=== PATIENT | male | born 1950 | race African-American/Black ===

== ENCOUNTER 2018-09-22 08:06 | Day surgery (SDC) | payer MEDICARE ==
[2018-09-22] MEDS ORDERED: LOPRESSOR PO NR (09:00)
[2018-09-22 09:07] LABS: BUN/Creatinine Ratio 23; Blood Urea Nitrogen 16 mg/dL (9-20); Calcium 8.9 mg/dL (8.4-10.2); Hemolysis Index 0
[2018-09-22] MEDS ORDERED: LOPRESSOR PO ONE (10:30)
[2018-09-22] MEDS ORDERED: LOPRESSOR IV ONE ×2 (11:00→12:00)
[2018-09-22] MEDS ORDERED: NITROSTAT SL ONE (11:15)
[2018-09-22 12:28] VITALS: BP 109/74
== END 2018-09-22 12:56 | disposition home or self-care (01) ==
LOC: CATHLABREC 08:06
PROVIDERS: ATTEND Internal Medicine Cardiovascular Disease
DX: R07.9 Chest pain, unspecified (principal); E78.00 Pure hypercholesterolemia, unspecified; I10 Essential (primary) hypertension; I20.8 Other forms of angina pectoris; Z53.8 Procedure and treatment not carried out for other reasons; Z79.899 Other long term (current) drug therapy; Z79.84 Long term (current) use of oral hypoglycemic drugs; Z79.4 Long term (current) use of insulin
CPT/HCPCS: 36415; 80048

== ENCOUNTER 2019-06-02 09:52 | Outpatient (CLI) | payer MEDICARE ==
[2019-06-02] MEDS ORDERED: LIDOCAINE (4%) 40 MG/ML TOPICAL SOLN 50 ML BOTTLE TP ONE (10:17)
== END 2019-06-02 09:53 | disposition home or self-care (01) ==
LOC: WOUND 09:52
PROVIDERS: ATTEND Surgery
DX: E11.622 Type 2 diabetes mellitus with other skin ulcer (principal); L97.322 Non-pressure chronic ulcer of left ankle with fat layer exposed; L97.222 Non-pressure chronic ulcer of left calf with fat layer exposed; E11.621 Type 2 diabetes mellitus with foot ulcer; L97.512 Non-pressure chronic ulcer of other part of right foot with fat layer exposed; I10 Essential (primary) hypertension
CPT/HCPCS: 11042; 11045; G0463; 99215

== ENCOUNTER 2019-06-09 10:11 | Outpatient (CLI) | payer MEDICARE ==
[2019-06-09] MEDS ORDERED: LIDOCAINE (4%) 40 MG/ML TOPICAL SOLN 50 ML BOTTLE TP ONE (11:00)
== END 2019-06-09 10:12 | disposition home or self-care (01) ==
LOC: WOUND 10:11
PROVIDERS: ATTEND Surgery
DX: E11.622 Type 2 diabetes mellitus with other skin ulcer (principal); L97.322 Non-pressure chronic ulcer of left ankle with fat layer exposed; L97.222 Non-pressure chronic ulcer of left calf with fat layer exposed; E11.621 Type 2 diabetes mellitus with foot ulcer; L97.512 Non-pressure chronic ulcer of other part of right foot with fat layer exposed; I10 Essential (primary) hypertension
CPT/HCPCS: 36415; 71046; 80048; 83036; 85025

== ENCOUNTER 2019-06-23 10:12 | Outpatient (CLI) | payer MEDICARE ==
[2019-06-23] MEDS ORDERED: LIDOCAINE (4%) 40 MG/ML TOPICAL SOLN 50 ML BOTTLE TP ONE (10:58)
== END 2019-06-23 10:13 | disposition home or self-care (01) ==
LOC: WOUND 10:12
PROVIDERS: ATTEND Surgery
DX: E11.622 Type 2 diabetes mellitus with other skin ulcer (principal); L97.322 Non-pressure chronic ulcer of left ankle with fat layer exposed; L97.222 Non-pressure chronic ulcer of left calf with fat layer exposed; E11.621 Type 2 diabetes mellitus with foot ulcer; L97.512 Non-pressure chronic ulcer of other part of right foot with fat layer exposed; I10 Essential (primary) hypertension
CPT/HCPCS: 36415; 80048; 83036; 85025; 93925

== ENCOUNTER 2019-06-23 11:55 | Outpatient (CLI) | payer MEDICARE ==
[2019-06-23 12:30] LABS: Basophils # (Auto) 0.1 K/mm3 (0.0-0.1); Basophils % (Auto) 1.2 % (0.0-1.8); Eosinophils # (Auto) 0.2 K/mm3 (0.0-0.4); Eosinophils % (Auto) 3.3 % (0.0-4.3); Hematocrit 40.6 % (35.5-45.6); Hemoglobin 13.3 gm/dl (11.8-15.2); Lymphocytes # (Auto) 1.2 K/mm3 (1.2-5.4); Lymphocytes % (Auto) 25.5 % (13.4-35.0); Mean Corpuscular HGB Conc 33 % (32-34); Mean Corpuscular Volume 85 fl (84-94); Monocytes # (Auto) 0.3 K/mm3 (0.0-0.8); Monocytes % (Auto) 6.4 % (0.0-7.3); Platelet Count 304 K/mm3 (140-440); Red Cell Distribution Width 13.7 % (13.2-15.2)
[2019-06-23 12:50] LABS: BUN/Creatinine Ratio 28; Blood Urea Nitrogen 22 mg/dL (9-20); Calcium 9.7 mg/dL (8.4-10.2); Hemolysis Index 6
--- NOTE | 2019-06-23 15:35 | Vascular Lab Report ---
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 TECHNIQUE: Arterial duplex examination of both lower extremities performed using B-mode, color flow and spectral Doppler assessment. FINDINGS: RIGHT: Common Femoral Artery: PSV 88 cm/sec. Triphasic waveform. Proximal SFA: PSV 87 cm/sec. Biphasic waveform. Mid SFA: PSV 69 cm/sec. Triphasic waveform. Distal SFA: PSV 43 cm/sec. Triphasic waveform. Popliteal artery: PSV 53 cm/sec. Triphasic waveform. Posterior tibial artery: PSV 134 cm/sec. Triphasic waveform. Dorsalis Pedis Artery: PSV 25 cm/sec. Monophasic waveform. LEFT: Common Femoral Artery: PSV 90 cm/sec. Triphasic waveform. Proximal SFA: PSV 92 cm/sec. Triphasic waveform. Mid SFA: PSV 88 cm/sec. Triphasic waveform. Distal SFA: PSV 56 cm/sec. Triphasic waveform. Popliteal artery: PSV 47 cm/sec. Triphasic waveform. Posterior tibial artery: PSV 95 cm/sec. Triphasic waveform. Dorsalis Pedis Artery: PSV 18 cm/sec. Biphasic waveform. IMPRESSION: 1. Multifocal atherosclerotic disease with waveforms as outlined above. Most significant stenosis is seen in the region of the right DPA where the waveform transition from triphasic to monophasic. Ankle-Brachial Index (CARMINA): * Calcified arteries > 1.4 * Normal = 0.9-1.4 * Mild PAD = 0.7-0.89 * Moderate PAD = 0.51-0.69 * Severe PAD < 0.5 Doppler Waveform: * Triphasic is normal. * Biphasic is abnormal if clear transition from triphasic signal along vascular tree. * Monophasic is abnormal. Signer Name: Efrain Lubin MD Signed: 06/23/2019 3:31 PM Workstation Name: [email or web address]
== END 2019-06-23 11:56 | disposition home or self-care (01) ==
LOC: VAS 11:55
PROVIDERS: ATTEND Surgery
DX: I70.299 Other atherosclerosis of native arteries of extremities, unspecified extremity (principal); L97.322 Non-pressure chronic ulcer of left ankle with fat layer exposed
CPT/HCPCS: 36415; 80048; 83036; 85025; 93925

== ENCOUNTER 2019-06-30 11:19 | Outpatient (CLI) | payer MEDICARE ==
[2019-06-30] MEDS ORDERED: LIDOCAINE (4%) 40 MG/ML TOPICAL SOLN 50 ML BOTTLE TP ONE (12:22)
== END 2019-06-30 11:20 | disposition home or self-care (01) ==
LOC: WOUND 11:19
PROVIDERS: ATTEND Surgery
DX: E11.622 Type 2 diabetes mellitus with other skin ulcer (principal); L97.322 Non-pressure chronic ulcer of left ankle with fat layer exposed; L97.222 Non-pressure chronic ulcer of left calf with fat layer exposed; E11.621 Type 2 diabetes mellitus with foot ulcer; L97.512 Non-pressure chronic ulcer of other part of right foot with fat layer exposed; I10 Essential (primary) hypertension

== ENCOUNTER 2019-06-30 13:20 | Outpatient (CLI) | payer MEDICARE ==
[2019-06-30 14:03] LABS: BUN/Creatinine Ratio 29; Blood Urea Nitrogen 20 mg/dL (9-20); Calcium 9.5 mg/dL (8.4-10.2); Hemolysis Index 11
== END 2019-06-30 13:21 | disposition home or self-care (01) ==
LOC: LAB 13:20
PROVIDERS: ATTEND Surgery
DX: E11.621 Type 2 diabetes mellitus with foot ulcer (principal); N18.1 Chronic kidney disease, stage 1; L97.222 Non-pressure chronic ulcer of left calf with fat layer exposed; L97.512 Non-pressure chronic ulcer of other part of right foot with fat layer exposed
CPT/HCPCS: 36415; 80048

== ENCOUNTER 2019-07-05 08:00 | Outpatient (CLI) | payer MEDICARE | END 2019-07-05 08:01 | disposition home or self-care (01) | LOC: WOUND 08:00 | PROVIDERS: ATTEND Surgery | DX: E11.621 Type 2 diabetes mellitus with foot ulcer (principal); L97.512 Non-pressure chronic ulcer of other part of right foot with fat layer exposed; E11.622 Type 2 diabetes mellitus with other skin ulcer; L97.222 Non-pressure chronic ulcer of left calf with fat layer exposed; L97.322 Non-pressure chronic ulcer of left ankle with fat layer exposed; E11.22 Type 2 diabetes mellitus with diabetic chronic kidney disease; I12.9 Hypertensive chronic kidney disease with stage 1 through stage 4 chronic kidney disease, or unspecified chronic kidney disease; N18.1 Chronic kidney disease, stage 1 | CPT/HCPCS: 82962; 99183; G0277 ==

== ENCOUNTER 2019-07-06 07:57 | Outpatient (CLI) | payer MEDICARE | END 2019-07-06 07:58 | disposition home or self-care (01) | LOC: WOUND 07:57 | PROVIDERS: ATTEND Surgery | DX: E11.621 Type 2 diabetes mellitus with foot ulcer (principal); L97.512 Non-pressure chronic ulcer of other part of right foot with fat layer exposed; E11.622 Type 2 diabetes mellitus with other skin ulcer; L97.222 Non-pressure chronic ulcer of left calf with fat layer exposed; L97.322 Non-pressure chronic ulcer of left ankle with fat layer exposed; E11.22 Type 2 diabetes mellitus with diabetic chronic kidney disease; I12.9 Hypertensive chronic kidney disease with stage 1 through stage 4 chronic kidney disease, or unspecified chronic kidney disease; N18.1 Chronic kidney disease, stage 1 | CPT/HCPCS: 82962; 99183; G0277 ==

== ENCOUNTER 2019-07-07 08:57 | Outpatient (CLI) | payer MEDICARE ==
[2019-07-07] MEDS ORDERED: LIDOCAINE (4%) 40 MG/ML TOPICAL SOLN 50 ML BOTTLE TP ONE (10:00)
== END 2019-07-07 08:58 | disposition home or self-care (01) ==
LOC: WOUND 08:57
PROVIDERS: ATTEND Surgery
DX: E11.621 Type 2 diabetes mellitus with foot ulcer (principal); L97.512 Non-pressure chronic ulcer of other part of right foot with fat layer exposed; E11.622 Type 2 diabetes mellitus with other skin ulcer; L97.222 Non-pressure chronic ulcer of left calf with fat layer exposed; L97.322 Non-pressure chronic ulcer of left ankle with fat layer exposed; E11.22 Type 2 diabetes mellitus with diabetic chronic kidney disease; I12.9 Hypertensive chronic kidney disease with stage 1 through stage 4 chronic kidney disease, or unspecified chronic kidney disease; N18.1 Chronic kidney disease, stage 1
CPT/HCPCS: 11042; 11045; 82962; G0277; 99183

== ENCOUNTER 2019-07-08 08:09 | Outpatient (CLI) | payer MEDICARE | END 2019-07-08 08:10 | disposition home or self-care (01) | LOC: WOUND 08:09 | PROVIDERS: ATTEND Surgery | DX: E11.9 Type 2 diabetes mellitus without complications (principal); I10 Essential (primary) hypertension | CPT/HCPCS: 82962 ==

== ENCOUNTER 2019-07-11 07:46 | Outpatient (CLI) | payer MEDICARE | END 2019-07-11 07:47 | disposition home or self-care (01) | LOC: WOUND 07:46 | PROVIDERS: ATTEND Surgery | DX: E11.621 Type 2 diabetes mellitus with foot ulcer (principal); L97.512 Non-pressure chronic ulcer of other part of right foot with fat layer exposed; E11.622 Type 2 diabetes mellitus with other skin ulcer; L97.222 Non-pressure chronic ulcer of left calf with fat layer exposed; L97.322 Non-pressure chronic ulcer of left ankle with fat layer exposed; E11.22 Type 2 diabetes mellitus with diabetic chronic kidney disease; I12.9 Hypertensive chronic kidney disease with stage 1 through stage 4 chronic kidney disease, or unspecified chronic kidney disease; N18.1 Chronic kidney disease, stage 1 | CPT/HCPCS: 82962; G0277; 99183 ==

== ENCOUNTER 2019-07-12 07:52 | Outpatient (CLI) | payer MEDICARE | END 2019-07-12 07:53 | disposition home or self-care (01) | LOC: WOUND 07:52 | PROVIDERS: ATTEND Surgery | DX: E11.621 Type 2 diabetes mellitus with foot ulcer (principal); L97.512 Non-pressure chronic ulcer of other part of right foot with fat layer exposed; E11.622 Type 2 diabetes mellitus with other skin ulcer; L97.222 Non-pressure chronic ulcer of left calf with fat layer exposed; L97.322 Non-pressure chronic ulcer of left ankle with fat layer exposed; E11.22 Type 2 diabetes mellitus with diabetic chronic kidney disease; I12.9 Hypertensive chronic kidney disease with stage 1 through stage 4 chronic kidney disease, or unspecified chronic kidney disease; N18.1 Chronic kidney disease, stage 1 | CPT/HCPCS: 82962; G0277; 99183 ==

== ENCOUNTER 2019-07-13 07:51 | Outpatient (CLI) | payer MEDICARE | END 2019-07-13 07:52 | disposition home or self-care (01) | LOC: WOUND 07:51 | PROVIDERS: ATTEND Surgery | DX: E11.621 Type 2 diabetes mellitus with foot ulcer (principal); L97.512 Non-pressure chronic ulcer of other part of right foot with fat layer exposed; E11.622 Type 2 diabetes mellitus with other skin ulcer; L97.222 Non-pressure chronic ulcer of left calf with fat layer exposed; L97.322 Non-pressure chronic ulcer of left ankle with fat layer exposed; E11.22 Type 2 diabetes mellitus with diabetic chronic kidney disease; I12.9 Hypertensive chronic kidney disease with stage 1 through stage 4 chronic kidney disease, or unspecified chronic kidney disease; N18.1 Chronic kidney disease, stage 1 | CPT/HCPCS: 82962; G0277; 99183 ==

== ENCOUNTER 2019-07-14 07:54 | Outpatient (CLI) | payer MEDICARE ==
[2019-07-14] MEDS ORDERED: LIDOCAINE (4%) 40 MG/ML TOPICAL SOLN 50 ML BOTTLE TP ONE (10:55)
[2019-07-14] MEDS ORDERED: VITAMIN A & D OINT 56.7 GM TP SCH (11:00)
== END 2019-07-14 07:55 | disposition home or self-care (01) ==
LOC: WOUND 07:54
PROVIDERS: ATTEND Surgery
DX: E11.621 Type 2 diabetes mellitus with foot ulcer (principal); L97.512 Non-pressure chronic ulcer of other part of right foot with fat layer exposed; E11.622 Type 2 diabetes mellitus with other skin ulcer; L97.222 Non-pressure chronic ulcer of left calf with fat layer exposed; L97.322 Non-pressure chronic ulcer of left ankle with fat layer exposed; E11.22 Type 2 diabetes mellitus with diabetic chronic kidney disease; I12.9 Hypertensive chronic kidney disease with stage 1 through stage 4 chronic kidney disease, or unspecified chronic kidney disease; N18.1 Chronic kidney disease, stage 1
CPT/HCPCS: 11042; 11043; 11045; 82962; G0277; 99183; A6250

== ENCOUNTER 2019-07-15 07:54 | Outpatient (CLI) | payer MEDICARE | END 2019-07-15 07:55 | disposition home or self-care (01) | LOC: WOUND 07:54 | PROVIDERS: ATTEND Surgery | DX: E11.621 Type 2 diabetes mellitus with foot ulcer (principal); L97.512 Non-pressure chronic ulcer of other part of right foot with fat layer exposed; E11.622 Type 2 diabetes mellitus with other skin ulcer; L97.222 Non-pressure chronic ulcer of left calf with fat layer exposed; L97.322 Non-pressure chronic ulcer of left ankle with fat layer exposed; E11.22 Type 2 diabetes mellitus with diabetic chronic kidney disease; I12.9 Hypertensive chronic kidney disease with stage 1 through stage 4 chronic kidney disease, or unspecified chronic kidney disease; N18.1 Chronic kidney disease, stage 1 | CPT/HCPCS: 82962; G0277; 99183 ==

== ENCOUNTER 2019-07-18 08:02 | Outpatient (CLI) | payer MEDICARE | END 2019-07-18 08:03 | disposition home or self-care (01) | LOC: WOUND 08:02 | PROVIDERS: ATTEND Surgery | DX: E11.621 Type 2 diabetes mellitus with foot ulcer (principal); L97.512 Non-pressure chronic ulcer of other part of right foot with fat layer exposed; E11.622 Type 2 diabetes mellitus with other skin ulcer; L97.222 Non-pressure chronic ulcer of left calf with fat layer exposed; L97.322 Non-pressure chronic ulcer of left ankle with fat layer exposed; E11.22 Type 2 diabetes mellitus with diabetic chronic kidney disease; I12.9 Hypertensive chronic kidney disease with stage 1 through stage 4 chronic kidney disease, or unspecified chronic kidney disease; N18.1 Chronic kidney disease, stage 1 | CPT/HCPCS: 82962; G0277; 99183 ==

== ENCOUNTER 2019-07-19 07:51 | Outpatient (CLI) | payer MEDICARE ==
[2019-07-19 14:56] LABS: Blood Urea Nitrogen 23 mg/dL (9-20)
== END 2019-07-19 07:52 | disposition home or self-care (01) ==
LOC: WOUND 07:51
PROVIDERS: ATTEND Surgery
DX: E11.621 Type 2 diabetes mellitus with foot ulcer (principal); L97.512 Non-pressure chronic ulcer of other part of right foot with fat layer exposed; E11.622 Type 2 diabetes mellitus with other skin ulcer; L97.222 Non-pressure chronic ulcer of left calf with fat layer exposed; L97.322 Non-pressure chronic ulcer of left ankle with fat layer exposed; E11.22 Type 2 diabetes mellitus with diabetic chronic kidney disease; I12.9 Hypertensive chronic kidney disease with stage 1 through stage 4 chronic kidney disease, or unspecified chronic kidney disease; N18.1 Chronic kidney disease, stage 1
CPT/HCPCS: 36415; 82565; 82962; 84520; G0277; 99183; A9577

== ENCOUNTER 2019-07-20 07:52 | Outpatient (CLI) | payer MEDICARE | END 2019-07-20 07:53 | disposition home or self-care (01) | LOC: WOUND 07:52 | PROVIDERS: ATTEND Surgery | DX: E11.621 Type 2 diabetes mellitus with foot ulcer (principal); L97.512 Non-pressure chronic ulcer of other part of right foot with fat layer exposed; E11.622 Type 2 diabetes mellitus with other skin ulcer; L97.222 Non-pressure chronic ulcer of left calf with fat layer exposed; L97.322 Non-pressure chronic ulcer of left ankle with fat layer exposed; E11.22 Type 2 diabetes mellitus with diabetic chronic kidney disease; I12.9 Hypertensive chronic kidney disease with stage 1 through stage 4 chronic kidney disease, or unspecified chronic kidney disease; N18.1 Chronic kidney disease, stage 1 | CPT/HCPCS: 82962; G0277; 99183 ==

== ENCOUNTER 2019-07-21 07:56 | Outpatient (CLI) | payer MEDICARE ==
[2019-07-21] MEDS ORDERED: LIDOCAINE (4%) 40 MG/ML TOPICAL SOLN 50 ML BOTTLE TP ONE (11:00)
== END 2019-07-21 07:57 | disposition home or self-care (01) ==
LOC: WOUND 07:56
PROVIDERS: ATTEND Surgery
DX: E11.621 Type 2 diabetes mellitus with foot ulcer (principal); L97.515 Non-pressure chronic ulcer of other part of right foot with muscle involvement without evidence of necrosis; E11.622 Type 2 diabetes mellitus with other skin ulcer; L97.222 Non-pressure chronic ulcer of left calf with fat layer exposed; L97.322 Non-pressure chronic ulcer of left ankle with fat layer exposed; E11.22 Type 2 diabetes mellitus with diabetic chronic kidney disease; I12.9 Hypertensive chronic kidney disease with stage 1 through stage 4 chronic kidney disease, or unspecified chronic kidney disease; N18.1 Chronic kidney disease, stage 1
CPT/HCPCS: 11042; 11043; 82962; G0277; 99183

== ENCOUNTER 2019-07-22 07:53 | Outpatient (CLI) | payer MEDICARE | END 2019-07-22 07:54 | disposition home or self-care (01) | LOC: WOUND 07:53 | PROVIDERS: ATTEND Surgery | DX: E11.621 Type 2 diabetes mellitus with foot ulcer (principal); L97.515 Non-pressure chronic ulcer of other part of right foot with muscle involvement without evidence of necrosis; E11.622 Type 2 diabetes mellitus with other skin ulcer; L97.222 Non-pressure chronic ulcer of left calf with fat layer exposed; L97.322 Non-pressure chronic ulcer of left ankle with fat layer exposed; E11.22 Type 2 diabetes mellitus with diabetic chronic kidney disease; I12.9 Hypertensive chronic kidney disease with stage 1 through stage 4 chronic kidney disease, or unspecified chronic kidney disease; N18.1 Chronic kidney disease, stage 1 | CPT/HCPCS: 82962; 99183; G0277 ==

== ENCOUNTER 2019-07-25 07:52 | Outpatient (CLI) | payer MEDICARE | END 2019-07-25 07:53 | disposition home or self-care (01) | LOC: WOUND 07:52 | PROVIDERS: ATTEND Surgery | DX: E11.621 Type 2 diabetes mellitus with foot ulcer (principal); L97.515 Non-pressure chronic ulcer of other part of right foot with muscle involvement without evidence of necrosis; E11.622 Type 2 diabetes mellitus with other skin ulcer; L97.222 Non-pressure chronic ulcer of left calf with fat layer exposed; L97.322 Non-pressure chronic ulcer of left ankle with fat layer exposed; E11.22 Type 2 diabetes mellitus with diabetic chronic kidney disease; I12.9 Hypertensive chronic kidney disease with stage 1 through stage 4 chronic kidney disease, or unspecified chronic kidney disease; N18.1 Chronic kidney disease, stage 1 | CPT/HCPCS: 82962; 99183; G0277 ==

== ENCOUNTER 2019-07-27 07:54 | Outpatient (CLI) | payer MEDICARE | END 2019-07-27 07:55 | disposition home or self-care (01) | LOC: WOUND 07:54 | PROVIDERS: ATTEND Surgery | DX: E11.621 Type 2 diabetes mellitus with foot ulcer (principal); L97.512 Non-pressure chronic ulcer of other part of right foot with fat layer exposed; E11.622 Type 2 diabetes mellitus with other skin ulcer; L97.222 Non-pressure chronic ulcer of left calf with fat layer exposed; L97.322 Non-pressure chronic ulcer of left ankle with fat layer exposed; E11.22 Type 2 diabetes mellitus with diabetic chronic kidney disease; I12.9 Hypertensive chronic kidney disease with stage 1 through stage 4 chronic kidney disease, or unspecified chronic kidney disease; N18.1 Chronic kidney disease, stage 1 | CPT/HCPCS: 82962; 99183; G0277 ==

== ENCOUNTER 2019-07-28 07:55 | Outpatient (CLI) | payer MEDICARE ==
[2019-07-28] MEDS ORDERED: LIDOCAINE (4%) 40 MG/ML TOPICAL SOLN 50 ML BOTTLE TP ONE (10:23)
== END 2019-07-28 07:56 | disposition home or self-care (01) ==
LOC: WOUND 07:55
PROVIDERS: ATTEND Surgery
DX: E11.621 Type 2 diabetes mellitus with foot ulcer (principal); L97.512 Non-pressure chronic ulcer of other part of right foot with fat layer exposed; E11.622 Type 2 diabetes mellitus with other skin ulcer; L97.222 Non-pressure chronic ulcer of left calf with fat layer exposed; L97.322 Non-pressure chronic ulcer of left ankle with fat layer exposed; E11.22 Type 2 diabetes mellitus with diabetic chronic kidney disease; I12.9 Hypertensive chronic kidney disease with stage 1 through stage 4 chronic kidney disease, or unspecified chronic kidney disease; N18.1 Chronic kidney disease, stage 1
CPT/HCPCS: 11042; 11044; G0277; 82962; 99183

== ENCOUNTER 2019-07-29 10:05 | Outpatient (CLI) | payer MEDICARE | END 2019-07-29 10:06 | disposition home or self-care (01) | LOC: WOUND 10:05 | PROVIDERS: ATTEND Surgery | DX: E11.621 Type 2 diabetes mellitus with foot ulcer (principal); L97.512 Non-pressure chronic ulcer of other part of right foot with fat layer exposed; E11.622 Type 2 diabetes mellitus with other skin ulcer; L97.222 Non-pressure chronic ulcer of left calf with fat layer exposed; L97.322 Non-pressure chronic ulcer of left ankle with fat layer exposed; E11.22 Type 2 diabetes mellitus with diabetic chronic kidney disease; I12.9 Hypertensive chronic kidney disease with stage 1 through stage 4 chronic kidney disease, or unspecified chronic kidney disease; N18.1 Chronic kidney disease, stage 1 | CPT/HCPCS: 82962; G0277; 99183 ==

== ENCOUNTER 2019-08-02 07:55 | Outpatient (CLI) | payer MEDICARE | END 2019-08-02 07:56 | disposition home or self-care (01) | LOC: WOUND 07:55 | PROVIDERS: ATTEND Surgery | DX: E11.621 Type 2 diabetes mellitus with foot ulcer (principal); L97.512 Non-pressure chronic ulcer of other part of right foot with fat layer exposed; E11.622 Type 2 diabetes mellitus with other skin ulcer; L97.222 Non-pressure chronic ulcer of left calf with fat layer exposed; L97.322 Non-pressure chronic ulcer of left ankle with fat layer exposed; E11.22 Type 2 diabetes mellitus with diabetic chronic kidney disease; I12.9 Hypertensive chronic kidney disease with stage 1 through stage 4 chronic kidney disease, or unspecified chronic kidney disease; N18.1 Chronic kidney disease, stage 1 | CPT/HCPCS: 82962; 99183; G0277 ==

== ENCOUNTER 2019-08-03 08:00 | Outpatient (CLI) | payer MEDICARE | END 2019-08-03 08:01 | disposition home or self-care (01) | LOC: WOUND 08:00 | PROVIDERS: ATTEND Surgery | DX: E11.621 Type 2 diabetes mellitus with foot ulcer (principal); L97.512 Non-pressure chronic ulcer of other part of right foot with fat layer exposed; E11.622 Type 2 diabetes mellitus with other skin ulcer; L97.222 Non-pressure chronic ulcer of left calf with fat layer exposed; L97.322 Non-pressure chronic ulcer of left ankle with fat layer exposed; E11.22 Type 2 diabetes mellitus with diabetic chronic kidney disease; I12.9 Hypertensive chronic kidney disease with stage 1 through stage 4 chronic kidney disease, or unspecified chronic kidney disease; N18.1 Chronic kidney disease, stage 1 | CPT/HCPCS: 82962; G0277; 99183 ==

== ENCOUNTER 2019-08-04 07:59 | Outpatient (CLI) | payer MEDICARE ==
[2019-08-04] MEDS ORDERED: LIDOCAINE (4%) 40 MG/ML TOPICAL SOLN 50 ML BOTTLE TP ONE (12:00)
[2019-08-04] MEDS ORDERED: SODIUM CHLORIDE 0.9% IRR 500 ML BOTTLE IR ONE (12:00)
== END 2019-08-04 08:00 | disposition home or self-care (01) ==
LOC: WOUND 07:59
PROVIDERS: ATTEND Surgery
DX: E11.621 Type 2 diabetes mellitus with foot ulcer (principal); L97.512 Non-pressure chronic ulcer of other part of right foot with fat layer exposed; E11.622 Type 2 diabetes mellitus with other skin ulcer; L97.222 Non-pressure chronic ulcer of left calf with fat layer exposed; L97.322 Non-pressure chronic ulcer of left ankle with fat layer exposed; E11.22 Type 2 diabetes mellitus with diabetic chronic kidney disease; I12.9 Hypertensive chronic kidney disease with stage 1 through stage 4 chronic kidney disease, or unspecified chronic kidney disease; N18.1 Chronic kidney disease, stage 1
CPT/HCPCS: 11043; 11044; 82962; G0277; 99183

== ENCOUNTER 2019-08-05 07:55 | Outpatient (CLI) | payer MEDICARE | END 2019-08-05 07:56 | disposition home or self-care (01) | LOC: WOUND 07:55 | PROVIDERS: ATTEND Surgery | DX: E11.621 Type 2 diabetes mellitus with foot ulcer (principal); L97.512 Non-pressure chronic ulcer of other part of right foot with fat layer exposed; E11.622 Type 2 diabetes mellitus with other skin ulcer; L97.322 Non-pressure chronic ulcer of left ankle with fat layer exposed; L97.222 Non-pressure chronic ulcer of left calf with fat layer exposed; E11.22 Type 2 diabetes mellitus with diabetic chronic kidney disease; I12.9 Hypertensive chronic kidney disease with stage 1 through stage 4 chronic kidney disease, or unspecified chronic kidney disease; N18.1 Chronic kidney disease, stage 1 | CPT/HCPCS: 82962; G0277; 99183 ==

== ENCOUNTER 2019-08-09 07:56 | Outpatient (CLI) | payer MEDICARE | END 2019-08-09 07:57 | disposition home or self-care (01) | LOC: WOUND 07:56 | PROVIDERS: ATTEND Surgery | DX: E11.621 Type 2 diabetes mellitus with foot ulcer (principal); L97.512 Non-pressure chronic ulcer of other part of right foot with fat layer exposed; E11.622 Type 2 diabetes mellitus with other skin ulcer; L97.322 Non-pressure chronic ulcer of left ankle with fat layer exposed; L97.222 Non-pressure chronic ulcer of left calf with fat layer exposed; E11.22 Type 2 diabetes mellitus with diabetic chronic kidney disease; I12.9 Hypertensive chronic kidney disease with stage 1 through stage 4 chronic kidney disease, or unspecified chronic kidney disease; N18.1 Chronic kidney disease, stage 1 | CPT/HCPCS: 82962 ==

== ENCOUNTER 2019-08-09 09:02 | Emergency (ER) | payer MEDICARE ==
[2019-08-09 15:02] LABS: Eosinophils # (Auto) 0.1 K/mm3 (0.0-0.4); Eosinophils % (Auto) 1.5 % (0.0-4.3); Hematocrit 38.8 % (35.5-45.6); Hemoglobin 12.7 gm/dl (11.8-15.2); Lymphocytes # (Auto) 1.5 K/mm3 (1.2-5.4); Lymphocytes % (Auto) 31.3 % (13.4-35.0); Mean Corpuscular HGB Conc 33 % (32-34); Mean Corpuscular Volume 83 fl (84-94); Monocytes # (Auto) 0.3 K/mm3 (0.0-0.8); Monocytes % (Auto) 6.6 % (0.0-7.3); Platelet Count 373 K/mm3 (140-440); Red Blood Count 4.69 M/mm3 (3.65-5.03); Red Cell Distribution Width 13.4 % (13.2-15.2)
[2019-08-09 15:03] LABS: Bilirubin,Urine NEG (Negative); Blood,Urine NEG (Negative); Color,Urine Straw (Yellow); Protein,Urine <15 mg/dL mg/dL (Negative); Urobilinogen,Urine < 2.0 mg/dL (<2.0); WBC,Urine < 1.0 /HPF (0.0-6.0)
[2019-08-09 15:15] LABS: Alanine Aminotransferase 6 units/L (7-56); Albumin 3.9 g/dL (3.9-5); BUN/Creatinine Ratio 19; Blood Urea Nitrogen 13 mg/dL (9-20); Calcium 9.5 mg/dL (8.4-10.2); Hemolysis Index 6
[2019-08-09 15:16] LABS: Bilirubin,Direct < 0.2 mg/dL (0-0.2)
[2019-08-09 15:28] VITALS: BP 134/74
--- NOTE | 2019-08-09 15:44 | Emergency Department Report ---
ED General Adult HPI - General Chief complaint: Hyperglycemia Stated complaint: BP HIGH Time Seen by Provider: 08/09/19 14:12 Source: patient Mode of arrival: Ambulatory Limitations: Language Barrier - Related Data Home Medications Medication Instructions Recorded Confirmed Last Taken Dulaglutide [Trulicity] 0.75 mg SQ QWEEK 09/22/18 09/22/18 Unknown Gabapentin 300 mg PO TID 09/22/18 09/22/18 09/21/18 300 mg Insulin NPH Human Isophane 30 units SQ BID 09/22/18 09/22/18 09/21/18 [Humulin N] 30 units Lovastatin [Altoprev] 40 mg PO DAILY 09/22/18 09/22/18 09/21/18 40 mg Sitagliptin Phosphate [Januvia] 25 mg PO DAILY 09/22/18 09/22/18 09/21/18 25 mg metFORMIN [Glucophage] 1,000 mg PO BID 09/22/18 09/22/18 09/21/18 1000 mg Allergies Allergy/AdvReac Type Severity Reaction Status Date / Time No Known Allergies Allergy Unverified 09/22/18 08:06 ED Review of Systems ROS: Stated complaint: BP HIGH Other details as noted in HPI ED Past Medical Hx - Past Medical History Previous Medical History?: Yes Hx Hypertension: Yes Hx Heart Attack/AMI: No Hx Diabetes: Yes Hx Asthma: No Hx COPD: No - Surgical History Hx Coronary Stent: No Hx Pacemaker: No - Social History Smoking Status: Never Smoker Substance Use Type: None - Medications Home Medications: Home Medications Medication Instructions Recorded Confirmed Last Taken Type Dulaglutide [Trulicity] 0.75 mg SQ QWEEK 09/22/18 09/22/18 Unknown History Gabapentin 300 mg PO TID 09/22/18 09/22/18 09/21/18 History 300 mg Insulin NPH Human Isophane 30 units SQ BID 09/22/18 09/22/18 09/21/18 History [Humulin N] 30 units Lovastatin [Altoprev] 40 mg PO DAILY 09/22/18 09/22/18 09/21/18 History 40 mg Sitagliptin Phosphate [Januvia] 25 mg PO DAILY 09/22/18 09/22/18 09/21/18 History 25 mg metFORMIN [Glucophage] 1,000 mg PO BID 09/22/18 09/22/18 09/21/18 History 1000 mg ED Physical Exam - General Limitations: Language Barrier ED Course Vital Signs 08/09/19 08/09/19 09:17 15:28 Temperature 98.1 F Pulse Rate 87 85 Respiratory 16 20 Rate Blood Pressure 144/76 134/74 [Right] O2 Sat by Pulse 96 99 Oximetry ED Medical Decision Making - Lab Data Result diagrams: 08/09/19 14:36 08/09/19 14:36 Critical care attestation.: If time is entered above; I have spent that time in minutes in the direct care of this critically ill patient, excluding procedure time. ED Disposition Disposition: DC-01 TO HOME OR SELFCARE Condition: Stable Instructions: Hypertension (ED) Referrals: FELIPE BONNER MD [Primary Care Provider] - 3-5 Days
== END 2019-08-09 15:38 | disposition home or self-care (01) ==
LOC: ED 09:02
DX: E11.65 Type 2 diabetes mellitus with hyperglycemia (principal); I10 Essential (primary) hypertension; Z79.4 Long term (current) use of insulin; Z79.899 Other long term (current) drug therapy
CPT/HCPCS: 36415; 80048; 80076; 81001; 82962; 85025

== ENCOUNTER 2019-08-11 07:53 | Outpatient (CLI) | payer MEDICARE ==
[2019-08-11] MEDS ORDERED: LIDOCAINE (4%) 40 MG/ML TOPICAL SOLN 50 ML BOTTLE TP ONE ×2 (10:05→12:00)
== END 2019-08-11 07:54 | disposition home or self-care (01) ==
LOC: WOUND 07:53
PROVIDERS: ATTEND Surgery
DX: E11.621 Type 2 diabetes mellitus with foot ulcer (principal); L97.512 Non-pressure chronic ulcer of other part of right foot with fat layer exposed; E11.622 Type 2 diabetes mellitus with other skin ulcer; L97.322 Non-pressure chronic ulcer of left ankle with fat layer exposed; L97.222 Non-pressure chronic ulcer of left calf with fat layer exposed; E11.22 Type 2 diabetes mellitus with diabetic chronic kidney disease; I12.9 Hypertensive chronic kidney disease with stage 1 through stage 4 chronic kidney disease, or unspecified chronic kidney disease
CPT/HCPCS: 11042; 11043; G0277; 82962; 99183

== ENCOUNTER 2019-08-12 07:55 | Outpatient (CLI) | payer MEDICARE | END 2019-08-12 07:56 | disposition home or self-care (01) | LOC: WOUND 07:55 | PROVIDERS: ATTEND Surgery | DX: E11.621 Type 2 diabetes mellitus with foot ulcer (principal); L97.512 Non-pressure chronic ulcer of other part of right foot with fat layer exposed; E11.622 Type 2 diabetes mellitus with other skin ulcer; L97.322 Non-pressure chronic ulcer of left ankle with fat layer exposed; L97.222 Non-pressure chronic ulcer of left calf with fat layer exposed; E11.22 Type 2 diabetes mellitus with diabetic chronic kidney disease; I12.9 Hypertensive chronic kidney disease with stage 1 through stage 4 chronic kidney disease, or unspecified chronic kidney disease | CPT/HCPCS: 82962; 99183; G0277 ==

== ENCOUNTER 2019-08-15 07:53 | Outpatient (CLI) | payer MEDICARE | END 2019-08-15 07:54 | disposition home or self-care (01) | LOC: WOUND 07:53 | PROVIDERS: ATTEND Surgery | DX: E11.621 Type 2 diabetes mellitus with foot ulcer (principal); L97.512 Non-pressure chronic ulcer of other part of right foot with fat layer exposed; E11.622 Type 2 diabetes mellitus with other skin ulcer; L97.322 Non-pressure chronic ulcer of left ankle with fat layer exposed; L97.222 Non-pressure chronic ulcer of left calf with fat layer exposed; E11.22 Type 2 diabetes mellitus with diabetic chronic kidney disease; I12.9 Hypertensive chronic kidney disease with stage 1 through stage 4 chronic kidney disease, or unspecified chronic kidney disease | CPT/HCPCS: 82962; G0277; 99183 ==

== ENCOUNTER 2019-08-16 07:58 | Outpatient (CLI) | payer MEDICARE | END 2019-08-16 07:59 | disposition home or self-care (01) | LOC: WOUND 07:58 | PROVIDERS: ATTEND Surgery | DX: E11.621 Type 2 diabetes mellitus with foot ulcer (principal); L97.512 Non-pressure chronic ulcer of other part of right foot with fat layer exposed; E11.622 Type 2 diabetes mellitus with other skin ulcer; L97.322 Non-pressure chronic ulcer of left ankle with fat layer exposed; L97.222 Non-pressure chronic ulcer of left calf with fat layer exposed; E11.22 Type 2 diabetes mellitus with diabetic chronic kidney disease; I12.9 Hypertensive chronic kidney disease with stage 1 through stage 4 chronic kidney disease, or unspecified chronic kidney disease | CPT/HCPCS: 82962; G0277; 99183 ==

== ENCOUNTER 2019-08-18 08:12 | Outpatient (CLI) | payer MEDICARE ==
[2019-08-18] MEDS ORDERED: LIDOCAINE (4%) 40 MG/ML TOPICAL SOLN 50 ML BOTTLE TP ONE (11:30)
== END 2019-08-18 08:13 | disposition home or self-care (01) ==
LOC: WOUND 08:12
PROVIDERS: ATTEND Surgery
DX: E11.621 Type 2 diabetes mellitus with foot ulcer (principal); L97.512 Non-pressure chronic ulcer of other part of right foot with fat layer exposed; E11.622 Type 2 diabetes mellitus with other skin ulcer; L97.322 Non-pressure chronic ulcer of left ankle with fat layer exposed; L97.222 Non-pressure chronic ulcer of left calf with fat layer exposed; E11.22 Type 2 diabetes mellitus with diabetic chronic kidney disease; I12.9 Hypertensive chronic kidney disease with stage 1 through stage 4 chronic kidney disease, or unspecified chronic kidney disease
CPT/HCPCS: 11042; 11043; G0277; 82962; 99183

== ENCOUNTER 2019-08-19 08:01 | Outpatient (CLI) | payer MEDICARE | END 2019-08-19 08:02 | disposition home or self-care (01) | LOC: WOUND 08:01 | PROVIDERS: ATTEND Surgery | DX: E11.621 Type 2 diabetes mellitus with foot ulcer (principal); L97.512 Non-pressure chronic ulcer of other part of right foot with fat layer exposed; E11.622 Type 2 diabetes mellitus with other skin ulcer; L97.322 Non-pressure chronic ulcer of left ankle with fat layer exposed; L97.222 Non-pressure chronic ulcer of left calf with fat layer exposed; E11.22 Type 2 diabetes mellitus with diabetic chronic kidney disease; I12.9 Hypertensive chronic kidney disease with stage 1 through stage 4 chronic kidney disease, or unspecified chronic kidney disease; N18.1 Chronic kidney disease, stage 1 | CPT/HCPCS: 82962; G0277; 99183 ==

== ENCOUNTER 2019-08-23 08:09 | Outpatient (CLI) | payer MEDICARE | END 2019-08-23 08:10 | disposition home or self-care (01) | LOC: WOUND 08:09 | PROVIDERS: ATTEND Surgery | DX: E11.621 Type 2 diabetes mellitus with foot ulcer (principal); L97.512 Non-pressure chronic ulcer of other part of right foot with fat layer exposed; E11.622 Type 2 diabetes mellitus with other skin ulcer; L97.322 Non-pressure chronic ulcer of left ankle with fat layer exposed; L97.222 Non-pressure chronic ulcer of left calf with fat layer exposed; E11.22 Type 2 diabetes mellitus with diabetic chronic kidney disease; I12.9 Hypertensive chronic kidney disease with stage 1 through stage 4 chronic kidney disease, or unspecified chronic kidney disease; N18.1 Chronic kidney disease, stage 1 | CPT/HCPCS: 82962; G0277; 99183 ==

== ENCOUNTER 2019-08-25 07:58 | Outpatient (CLI) | payer MEDICARE | END 2019-08-25 07:59 | disposition home or self-care (01) | LOC: WOUND 07:58 | PROVIDERS: ATTEND Surgery | DX: E11.621 Type 2 diabetes mellitus with foot ulcer (principal); L97.512 Non-pressure chronic ulcer of other part of right foot with fat layer exposed; E11.622 Type 2 diabetes mellitus with other skin ulcer; L97.322 Non-pressure chronic ulcer of left ankle with fat layer exposed; L97.222 Non-pressure chronic ulcer of left calf with fat layer exposed; E11.22 Type 2 diabetes mellitus with diabetic chronic kidney disease; I12.9 Hypertensive chronic kidney disease with stage 1 through stage 4 chronic kidney disease, or unspecified chronic kidney disease; N18.1 Chronic kidney disease, stage 1 | CPT/HCPCS: 82962; G0277; 99183 ==

== ENCOUNTER 2019-08-26 08:00 | Outpatient (CLI) | payer MEDICARE ==
[2019-08-26] MEDS ORDERED: LIDOCAINE (4%) 40 MG/ML TOPICAL SOLN 50 ML BOTTLE TP ONE (09:58)
== END 2019-08-26 08:01 | disposition home or self-care (01) ==
LOC: WOUND 08:00
PROVIDERS: ATTEND Surgery
DX: E11.621 Type 2 diabetes mellitus with foot ulcer (principal); L97.512 Non-pressure chronic ulcer of other part of right foot with fat layer exposed; E11.622 Type 2 diabetes mellitus with other skin ulcer; L97.322 Non-pressure chronic ulcer of left ankle with fat layer exposed; L97.222 Non-pressure chronic ulcer of left calf with fat layer exposed; E11.22 Type 2 diabetes mellitus with diabetic chronic kidney disease; I12.9 Hypertensive chronic kidney disease with stage 1 through stage 4 chronic kidney disease, or unspecified chronic kidney disease; N18.1 Chronic kidney disease, stage 1
CPT/HCPCS: 11042; G0277; 99183

== ENCOUNTER 2019-08-29 07:58 | Outpatient (CLI) | payer MEDICARE | END 2019-08-29 07:59 | disposition home or self-care (01) | LOC: WOUND 07:58 | PROVIDERS: ATTEND Surgery | DX: E11.621 Type 2 diabetes mellitus with foot ulcer (principal); L97.512 Non-pressure chronic ulcer of other part of right foot with fat layer exposed; E11.622 Type 2 diabetes mellitus with other skin ulcer; L97.322 Non-pressure chronic ulcer of left ankle with fat layer exposed; L97.222 Non-pressure chronic ulcer of left calf with fat layer exposed; E11.22 Type 2 diabetes mellitus with diabetic chronic kidney disease; I12.9 Hypertensive chronic kidney disease with stage 1 through stage 4 chronic kidney disease, or unspecified chronic kidney disease; N18.1 Chronic kidney disease, stage 1 | CPT/HCPCS: 82962; G0277; 99183 ==

== ENCOUNTER 2019-08-31 08:01 | Outpatient (CLI) | payer MEDICARE ==
[2019-08-31] MEDS ORDERED: DEXTROSE/DEXTRIN/MALTOSE 24 GM CARB PER 31 GM TUBE PO ONE (11:30)
== END 2019-08-31 08:02 | disposition home or self-care (01) ==
LOC: WOUND 08:01
PROVIDERS: ATTEND Surgery
DX: E11.621 Type 2 diabetes mellitus with foot ulcer (principal); L97.512 Non-pressure chronic ulcer of other part of right foot with fat layer exposed; E11.622 Type 2 diabetes mellitus with other skin ulcer; L97.322 Non-pressure chronic ulcer of left ankle with fat layer exposed; L97.222 Non-pressure chronic ulcer of left calf with fat layer exposed; E11.22 Type 2 diabetes mellitus with diabetic chronic kidney disease; I12.9 Hypertensive chronic kidney disease with stage 1 through stage 4 chronic kidney disease, or unspecified chronic kidney disease; N18.1 Chronic kidney disease, stage 1
CPT/HCPCS: 82962; G0277; 99183

== ENCOUNTER 2019-08-31 11:48 | Inpatient (IN) | payer MEDICARE ==
[2019-08-31] MEDS ORDERED: SODIUM CHLORIDE 0.9% 1000 ML 1,000 ML IV ONE (12:42)
[2019-08-31 12:49] LABS: Basophils % (Auto) 0.6 % (0.0-1.8); Eosinophils # (Auto) 0.1 K/mm3 (0.0-0.4); Hematocrit 34.5 % (35.5-45.6); Hemoglobin 11.3 gm/dl (11.8-15.2); Lymphocytes # (Auto) 1.1 K/mm3 (1.2-5.4); Lymphocytes % (Auto) 16.1 % (13.4-35.0); Mean Corpuscular HGB Conc 33 % (32-34); Mean Corpuscular Volume 84 fl (84-94); Monocytes # (Auto) 0.4 K/mm3 (0.0-0.8); Monocytes % (Auto) 6.3 % (0.0-7.3); Platelet Count 349 K/mm3 (140-440); Red Blood Count 4.11 M/mm3 (3.65-5.03); Red Cell Distribution Width 14.5 % (13.2-15.2)
[2019-08-31 12:58] LABS: INR 0.86 (0.87-1.13)
[2019-08-31] MEDS ORDERED: VANCOMYCIN PHARMACY TO DOSE IV SCH (13:00)
[2019-08-31] MEDS ORDERED: VANCOMYCIN 1,500 MG in SODIUM CHLORIDE 0.9% 500 ML 500 ML IV ONE (13:00)
[2019-08-31 13:10] LABS: Alanine Aminotransferase 8 units/L (7-56); Albumin 3.8 g/dL (3.9-5); BUN/Creatinine Ratio 27; Blood Urea Nitrogen 16 mg/dL (9-20); Calcium 9.3 mg/dL (8.4-10.2); Hemolysis Index 9
[2019-08-31 13:11] LABS: Bilirubin,Direct < 0.2 mg/dL (0-0.2)
[2019-08-31] MEDS ORDERED: DEXTROSE 50% IN WATER (25GM) 50 ML SYRINGE IV ONE (13:19)
--- NOTE | 2019-08-31 13:29 | Emergency Department Report ---
ED General Adult HPI - General Chief complaint: Hypoglycemia Stated complaint: HYPOGLYCEMIA Time Seen by Provider: 08/31/19 12:35 Source: EMS Mode of arrival: Ambulatory Limitations: Language Barrier - History of Present Illness Initial comments: This is a 68-year-old insulin-dependent diabetic with great toe infection being treated at the wound care center with hyperbaric therapy. He was found to have a sugar in the 40s prior to arrival. According to the triage note after D5 it was 93. However, on laboratory retesting it was only 42. Patient was awake on my encounter. He does not speak Serbian. He was not able to provide any history. His family has yet to arrive. No further information is available to me at this time. -: unknown - Related Data Home Medications Medication Instructions Recorded Confirmed Last Taken Dulaglutide [Trulicity] 0.75 mg SQ QWEEK 09/22/18 09/22/18 Unknown Gabapentin 300 mg PO TID 09/22/18 09/22/18 09/21/18 300 mg Insulin NPH Human Isophane 30 units SQ BID 09/22/18 09/22/18 09/21/18 [Humulin N] 30 units Lovastatin [Altoprev] 40 mg PO DAILY 09/22/18 09/22/18 09/21/18 40 mg Sitagliptin Phosphate [Januvia] 25 mg PO DAILY 09/22/18 09/22/18 09/21/18 25 mg metFORMIN [Glucophage] 1,000 mg PO BID 09/22/18 09/22/18 09/21/18 1000 mg Allergies Allergy/AdvReac Type Severity Reaction Status Date / Time No Known Allergies Allergy Unverified 09/22/18 08:06 ED Review of Systems ROS: Stated complaint: HYPOGLYCEMIA Other details as noted in HPI Comment: Unobtainable due to pts medical conditions ED Past Medical Hx - Past Medical History Previous Medical History?: Yes Hx Hypertension: Yes Hx Heart Attack/AMI: No Hx Diabetes: Yes Hx Asthma: No Hx COPD: No - Surgical History Past Surgical History?: Yes Hx Coronary Stent: No Hx Pacemaker: No - Social History Smoking Status: Never Smoker Substance Use Type: None - Medications Home Medications: Home Medications Medication Instructions Recorded Confirmed Last Taken Type Dulaglutide [Trulicity] 0.75 mg SQ QWEEK 09/22/18 09/22/18 Unknown History Gabapentin 300 mg PO TID 09/22/18 09/22/18 09/21/18 History 300 mg Insulin NPH Human Isophane 30 units SQ BID 09/22/18 09/22/18 09/21/18 History [Humulin N] 30 units Lovastatin [Altoprev] 40 mg PO DAILY 09/22/18 09/22/18 09/21/18 History 40 mg Sitagliptin Phosphate [Januvia] 25 mg PO DAILY 09/22/18 09/22/18 09/21/18 History 25 mg metFORMIN [Glucophage] 1,000 mg PO BID 09/22/18 09/22/18 09/21/18 History 1000 mg ED Physical Exam - General Limitations: Language Barrier General appearance: alert, in no apparent distress - Head Head exam: Present: atraumatic, normocephalic - Eye Eye exam: Present: normal appearance. Absent: scleral icterus - ENT ENT exam: Present: mucous membranes moist - Neck Neck exam: Present: normal inspection. Absent: tenderness, meningismus - Respiratory Respiratory exam: Present: normal lung sounds bilaterally. Absent: respiratory distress - Cardiovascular Cardiovascular Exam: Present: regular rate, normal rhythm. Absent: systolic murmur, diastolic murmur, rubs, gallop - GI/Abdominal GI/Abdominal exam: Present: soft, normal bowel sounds. Absent: distended, tenderness, guarding, rebound - Rectal Rectal exam: Present: deferred - Extremities Exam Extremities exam: Present: other (The patient has a Rey with a great toe dressing. There appears to be serosanguineous fluid. The toe is not necrotic.) - Back Exam Back exam: Present: normal inspection - Neurological Exam Neurological exam: Present: alert, oriented X3 - Psychiatric Psychiatric exam: Present: normal affect, normal mood - Skin Skin exam: Present: warm, dry, intact, normal color. Absent: rash ED Course Vital Signs 08/31/19 08/31/19 11:54 12:03 Temperature 97.5 F L Pulse Rate 80 85 Respiratory 18 18 Rate Blood Pressure 142/76 Blood Pressure 142/76 [Left] O2 Sat by Pulse 99 100 Oximetry - Reevaluation(s) Reevaluation #1: Patient apparently has recurrent hyperglycemia. He currently has a diabetic foot infection. He is given vancomycin empirically. His labs do not suggest sepsis. An x-ray of his foot is pending. I am sure he will need a wound care consult. He is referred to the hospital service for further care management. He is given an amp of D50. His sugar will be monitored. 08/31/19 13:28 ED Medical Decision Making - Lab Data Result diagrams: 08/31/19 12:36 08/31/19 12:36 Laboratory Results - last 24 hr 08/31/19 08/31/19 08/31/19 12:13 12:36 12:36 WBC 6.7 RBC 4.11 Hgb 11.3 L Hct 34.5 L MCV 84 MCH 28 MCHC 33 RDW 14.5 Plt Count 349 Lymph % (Auto) 16.1 Hawkins % (Auto) 6.3 Eos % (Auto) 1.0 Baso % (Auto) 0.6 Lymph # 1.1 L Hawkins # 0.4 Eos # 0.1 Baso # 0.0 Seg Neutrophils % 76.0 H Seg Neutrophils # 5.1 PT INR APTT Sodium 140 Potassium 3.8 Chloride 101.6 Carbon Dioxide 25 Anion Gap 17 BUN 16 Creatinine 0.6 L Estimated GFR > 60 BUN/Creatinine Ratio 27 Glucose 42 L POC Glucose 84 Calcium 9.3 Magnesium Total Bilirubin 0.20 Direct Bilirubin < 0.2 AST 13 ALT 8 Alkaline Phosphatase 81 CK-MB (CK-2) Total Protein 6.8 Albumin 3.8 L Albumin/Globulin Ratio 1.3 08/31/19 08/31/19 12:41 12:41 WBC RBC Hgb Hct MCV MCH MCHC RDW Plt Count Lymph % (Auto) Hawkins % (Auto) Eos % (Auto) Baso % (Auto) Lymph # Hawkins # Eos # Baso # Seg Neutrophils % Seg Neutrophils # PT 11.8 L INR 0.86 L APTT 26.0 Sodium Potassium Chloride Carbon Dioxide Anion Gap BUN Creatinine Estimated GFR BUN/Creatinine Ratio Glucose POC Glucose Calcium Magnesium 2.00 Total Bilirubin Direct Bilirubin AST ALT Alkaline Phosphatase CK-MB (CK-2) 2.0 Total Protein Albumin Albumin/Globulin Ratio Critical care attestation.: If time is entered above; I have spent that time in minutes in the direct care of this critically ill patient, excluding procedure time. ED Disposition Clinical Impression: Hypoglycemia due to type 1 diabetes mellitus, Diabetic infection of right foot Disposition: OP ADMIT IP TO THIS HOSP Is pt being admited?: Yes Does the pt Need Aspirin: Yes Condition: Stable Instructions: Diabetes Mellitus Type 2 in Adults (ED) Time of Disposition: 13:29
[2019-08-31] MEDS ORDERED: ASPIRIN 81 MG TAB CHEW PO ONE (13:30)
--- NOTE | 2019-08-31 13:37 | XRay Report ---
CHEST 1 VIEW 08/31/2019 12:29 PM INDICATION / CLINICAL INFORMATION: Difficulty breathing. COMPARISON: Chest x-ray on 06/09/2019. FINDINGS: SUPPORT DEVICES: None. HEART / MEDIASTINUM: Normal heart size. Atherosclerosis in the thoracic aorta. LUNGS / PLEURA: No significant pulmonary or pleural abnormality. No pneumothorax. 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 IMPRESSION: 1. No acute findings. Signer Name: Robert Montez MD Signed: 08/31/2019 1:32 PM Workstation Name: [id number]
--- NOTE | 2019-08-31 13:39 | History and Physical Report ---
History of Present Illness Chief complaint: Low blood sugar History of present illness: 68-year-old male with DM, HTN, diabetic foot currently undergoing hyperbaric therapy presents to ED for evaluation. Patient was undergoing treatment at the hyperbaric center when the patient was found to be confused. Patient blood glucose was checked and patient was found to have a serum glucose in the 40s. EMS notified and upon arrival the patient was found to be in distress and subsequently transported to [facility] for further evaluation and care. Patient seen and evaluated in the emergency department and is unable to provide history. Patient history taken from EMS, ED staff. Lab and imaging studies reviewed. Patient was found to have encephalopathy suspected secondary to hypoglycemia. Patient treated with dextrose with mild improvement in neurologic status with return of symptoms. Patient blood glucose was rechecked and patient was found to have persistent hypoglycemia. Patient started on dextrose drip and admitted to [facility] unit. No reports of fever, chills, chest pain, palpitations, productive cough, skin rash, body aches, recent ill contacts. No prior admission for review. All medication listed at time of admission has been reconciled. Advanced care planning conducted in ED. Patient is confused at time of my exam however patient has positive gag reflex and is able to protect his airway. Past History Past Medical History: diabetes, hypertension, other (See HPI) Past Surgical History: No surgical history, Other (Reviewed) Social history: , lives with family. denies: smoking, alcohol abuse, prescription drug abuse Family history: diabetes, hypertension Medications and Allergies Allergies Allergy/AdvReac Type Severity Reaction Status Date / Time No Known Allergies Allergy Unverified 09/22/18 08:06 Home Medications Medication Instructions Recorded Confirmed Last Taken Type Dulaglutide [Trulicity] 0.75 mg SQ QWEEK 09/22/18 09/22/18 Unknown History Gabapentin 300 mg PO TID 09/22/18 09/22/18 09/21/18 History 300 mg Insulin NPH Human Isophane 30 units SQ BID 09/22/18 09/22/18 09/21/18 History [Humulin N] 30 units Lovastatin [Altoprev] 40 mg PO DAILY 09/22/18 09/22/18 09/21/18 History 40 mg Sitagliptin Phosphate [Januvia] 25 mg PO DAILY 09/22/18 09/22/18 09/21/18 History 25 mg metFORMIN [Glucophage] 1,000 mg PO BID 09/22/18 09/22/18 09/21/18 History 1000 mg Active Meds: Active Medications Sodium Chloride (Nacl 0.9% 1000 Ml) 1,000 mls @ 999 mls/hr IV BOLUS ONE Stop: 08/31/19 13:42 Vancomycin HCl 1,500 mg/ (Sodium Chloride) 530 mls @ 333.333 mls/hr IV ONCE ONE Stop: 08/31/19 14:35 Review of Systems ROS unobtainable: due to mental status Exam - Constitutional Vitals: Temp Pulse Resp BP Pulse Ox 97.5 F L 85 18 142/76 100 08/31/19 11:54 08/31/19 12:03 08/31/19 12:03 08/31/19 12:03 08/31/19 12:03 General appearance: Present: mild distress - EENT Eyes: Present: PERRL ENT: hearing intact, clear oral mucosa - Neck Neck: Present: supple, normal ROM - Respiratory Respiratory effort: normal Respiratory: bilateral: CTA - Cardiovascular Heart Sounds: Present: S1 & S2. Absent: rub, click - Extremities Extremities: pulses symmetrical, No edema Peripheral Pulses: within normal limits - Abdominal General gastrointestinal: Present: soft, non-tender, non-distended, normal bowel sounds Male genitourinary: Present: normal - Integumentary Integumentary: Present: clear, warm, dry - Musculoskeletal Musculoskeletal: generalized weakness - Psychiatric Psychiatric: no appropriate mood/affect, no intact judgment & insight, no memory intact - Neurologic Neurologic: CNII-XII intact, moves all extremities Results - Labs CBC & Chem 7: 08/31/19 12:36 08/31/19 12:36 Labs: Abnormal lab results 08/31/19 08/31/19 08/31/19 Range/Units 12:36 12:36 12:41 Hgb 11.3 L (11.8-15.2) gm/dl Hct 34.5 L (35.5-45.6) % Lymph # 1.1 L (1.2-5.4) K/mm3 Seg Neutrophils % 76.0 H (40.0-70.0) % PT 11.8 L (12.2-14.9) Sec. INR 0.86 L (0.87-1.13) Creatinine 0.6 L (0.8-1.5) mg/dL Glucose 42 L (75-100) mg/dL Albumin 3.8 L (3.9-5) g/dL Assessment and Plan - Patient Problems (1) Hypoglycemia Status: Acute Plan to address problem: Dextrose drip, serial accu check, hypoglycemia protocol. (2) Diabetic foot Status: Acute Plan to address problem: wound care, prophylactic dose of antibiotic therapy, cbc (3) Hypertension Status: Acute Qualifiers: Hypertension type: essential hypertension Qualified Code(s): I10 - Essential (primary) hypertension Plan to address problem: Monitor BP q shift, continue medical management (4) DVT prophylaxis Status: Acute Plan to address problem: SCD to BLE while in bed, prophylactic heparin
[2019-08-31] MEDS ORDERED: ACETAMINOPHEN 325 MG TAB PO PRN (13:41)
[2019-08-31] MEDS ORDERED: ALBUTEROL 2.5 MG/3 ML NEBU IH PRN (13:41)
[2019-08-31] MEDS ORDERED: ONDANSETRON 4 MG/2 ML INJ IV PRN (13:41)
[2019-08-31] MEDS ORDERED: D5W/0.9% NACL 1,000 ML IV SCH (14:00)
--- NOTE | 2019-08-31 14:39 | XRay Report ---
Right foot, 3 views INDICATION: Pain, infection FINDINGS: There is advanced destruction of the proximal and distal phalanges of the great toe consist ent with extensive osteomyelitis. The first metatarsal appears intact however. The remaining toes are also unremarkable with no other areas of bone destruction or significant arthritis. Signer Name: Oren Gregory MD Signed: 08/31/2019 2:34 PM Workstation Name: [id number]
[2019-08-31] MEDS ORDERED: DEXTROSE 50% IN WATER (25GM) 50 ML SYRINGE IV PRN (15:30)
[2019-08-31] MEDS: DEXTROSE 10% IN WATER 1,000 ML IV SCH (15:55)
[2019-08-31 22:10] LABS: Bilirubin,Urine NEG (Negative); Blood,Urine NEG (Negative); Color,Urine Yellow (Yellow); Mucus,Urine FEW /HPF; Protein,Urine <15 mg/dL mg/dL (Negative); RBC,Urine < 1.0 /HPF (0.0-6.0); Urobilinogen,Urine < 2.0 mg/dL (<2.0)
[2019-09-01] MEDS: GABAPENTIN 300 MG CAP PO SCH ×3 (00:24→15:06)
[2019-09-01] MEDS ORDERED: VANCOMYCIN/NS 1 GM/250 ML 1 GM/250 ML BAG IV SCH (02:00)
[2019-09-01 05:34] LABS: BUN/Creatinine Ratio 20; Blood Urea Nitrogen 12 mg/dL (9-20); Calcium 8.7 mg/dL (8.4-10.2); Hemolysis Index 1
[2019-09-01] MEDS: DEXTROSE 10% IN WATER 1,000 ML IV SCH (06:10)
[2019-09-01] MEDS ORDERED: GABAPENTIN 300 MG CAP ONE ×2 (09:03→14:47)
[2019-09-01] MEDS ORDERED: NON-FORMULARY EACH (Lovastatin [Altoprev] 40 MG) PO SCH (10:00)
[2019-09-01] MEDS ORDERED: INSULIN NPH, HUMAN 100 UNIT/1 ML SUB-Q SCH (14:00)
--- NOTE | 2019-09-01 14:28 | Discharge Summary ---
Providers - Providers Date of Admission: 08/31/19 15:31 Date of discharge: 09/01/19 Attending physician: YEISON VINCENT 08/31/19 14:35 Consult to Wound/ET Nurse [CONS] Routine Reason For Exam: wound eval [facility] Condition: Stable Hospital course: 68-year-old male with DM, HTN, diabetic foot currently undergoing hyperbaric therapy presents to ED for evaluation for confusion and hypoglycemia with blood glucose of 40s. EMS notified and transported to ER. Patient was found to have encephalopathy suspected secondary to hypoglycemia. Patient treated with dextrose with mild improvement in neurologic status but patient was found to have persistent hypoglycemia. Patient started on dextrose drip and admitted to [facility] unit. By next morning his hypoglycemia resolved, he was tolerating diet mental status was stable. His diabetic medications were readjusted to prevent hypoglycemic episode. patient was then discharged home in stable condition with outpatient follow-up. Discharge diagnosis: Hypoglycemic episodes -Patient placed on D10 IV fluid, adjusted hypoglycemic medications -Blood sugar stabilized and patient was discharged home with outpatient follow- up Acute metabolic encephalopathy, likely due to hypoglycemia, resolved Hypertension, continue outpatient medications Diabetes mellitus type 2, adjusted insulin dose to prevent hypoglycemia Right foot diabetic infection, continue outpatient follow-up at wound clinic with DR Davis, discharged with Ceftin p.o. twice daily for 1 week Physical exam: GENERAL: well-developed and well-nourished elderly male lying on bed appeared to be in no discomfort. HEENT: Normocephalic. Atraumatic. No conjunctival congestion or icterus. Patient has moist mucous membranes. NECK: Supple. Trachea midline. CHEST/LUNGS: Clear to auscultated bilaterally, breathing nonlabored. No wheezes crackles or rhonchi. HEART/CARDIOVASCULAR: Regular in rate and rhythm. S1 and S2 positive. ABDOMEN: Abdomen is soft, nontender. Patient has normal bowel sounds. SKIN: There is no rash. Warm and dry. NEURO: No focal motor deficit. Follows command. MUSCULOSKELETAL: No joint effusion or tenderness. EXTRIMITY: No edema, no cyanosis or clubbing. Right foot with dressing PSYCH: Cooperative. Disposition: DC/[place]-06 HOME UND[facility] Time spent for discharge: 34 minutes Core Measure Documentation - Palliative Care Palliative Care/ Comfort Measures: Not Applicable - Core Measures Any of the following diagnoses?: none Exam - Constitutional Vitals: Temp Pulse Resp BP Pulse Ox 98.2 F 82 18 143/85 97 09/01/19 07:20 09/01/19 13:30 09/01/19 10:00 09/01/19 13:30 09/01/19 13:30 Plan Activity: advance as tolerated Weight Bearing Status: Weight Bear as Tolerated Diet: diabetic Wound: keep clean and dry, change dressing, per your surgeon's advice Special Instructions: record blood sugar diary Follow up with: [facility] [Primary Care Provider] - 7 Days CARO DAVIS MD [Staff Physician] - 7 Days Prescriptions: cefUROXime [Ceftin] 500 mg PO Q12HR #14 tablet
[2019-09-01 19:47] VITALS: BP 156/85
== END 2019-09-01 19:46 | disposition home health service (06) | DRG 637 ==
LOC: ED 11:48 → 2B-ACE 13:41 → OBSVTOIN 15:31 → IMCU 16:27 → 2B-ACE 09-01 14:00
PROVIDERS: ADMIT Internal Medicine; ATTEND Internal Medicine
DX: E11.649 Type 2 diabetes mellitus with hypoglycemia without coma (principal); G93.41 Metabolic encephalopathy; I10 Essential (primary) hypertension; E11.621 Type 2 diabetes mellitus with foot ulcer; Z82.49 Family history of ischemic heart disease and other diseases of the circulatory system; Z83.3 Family history of diabetes mellitus; Z79.899 Other long term (current) drug therapy; Z79.4 Long term (current) use of insulin
CPT/HCPCS: 36415; 71045; 80048; 80076; 81001; 82140; 82550; 82553; 82962; 83735; 85025; 85610; 85730; 87040; 87086; 96365; 96367; 96372; 96375; G0378; A9270-GY; J1815; J3370; J7030; J7040